=== PATIENT | male | born 1955 | race Caucasian/White ===

== ENCOUNTER → 2022-12-20 | Day surgery (SDC) | payer MEDICARE, BC ==
[~2022-12-20] MED LIST: Lactated Ringers 1,000 ML IV SCH; Propofol 200 MG/20 ML SDV ONE
== END | disposition home or self-care (01) ==
LOC: MW.SDS 08:02
PROVIDERS: ATTEND Surgery
DX: Z12.11 Encounter for screening for malignant neoplasm of colon (principal); K57.30 Diverticulosis of large intestine without perforation or abscess without bleeding; E78.5 Hyperlipidemia, unspecified; I10 Essential (primary) hypertension; G47.30 Sleep apnea, unspecified; Z79.899 Other long term (current) drug therapy; Z87.891 Personal history of nicotine dependence; Z78.9 Other specified health status
CPT/HCPCS: G0121; J2704; J7120